=== PATIENT | female | born 1940 | race Caucasian/White ===

== ENCOUNTER 2019-02-21 17:51 | Emergency (ER) | payer MEDICARE ==
[2019-02-21] MEDS ORDERED: Zofran 4 MG/2 ML VIAL ONE (18:37)
[2019-02-21] MEDS ORDERED: Hydromorphone 1 mg/ml Ampule ONE (18:37)
[2019-02-21] MEDS ORDERED: Sodium Chloride 0.9% 1000 ML 1,000 ML ONE (18:38)
[2019-02-21] MEDS: Sodium Chloride 0.9% 1000 ML 1,000 ML IV SCH (18:38)
[2019-02-21] MEDS: Hydromorphone 1 mg/ml Ampule IV ONE (18:39)
[2019-02-21] MEDS: Zofran 4 MG/2 ML VIAL IV ONE (18:39)
--- NOTE | 2019-02-21 19:29 | ERPHSYRPT ---
- History of Present Illness Time Seen by Provider: 02/21/19 18:20 Source: patient, family Exam Limitations: no limitations Patient Subjective Stated Complaint: Pt states "I stumbled in the kitchen and now my left hip is killing me.:" Triage Nursing Assessment: Pt presented alert and oriented X 3, skin pwd Pt has prosthetic on right lower leg. Pt moaning and grabbing at left hip. 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 pt tripped over a vacuum cabin cleaner attachment. fell directly on left hip. denies back, neck or head injury or pain. hurts to bear weight. Timing/Duration: today Occured at: home Context: tripped Quality: sharpness, stabbing, throbbing Hip Pain Location: hip (L) Severity of Pain-Max: moderate Severity of Pain-Current: moderate Modifying Factors: Improves With: movement Symptoms prior to fall: none Associated Symptoms: trouble walking Allergies/Adverse Reactions: No Known Drug Allergies Allergy (Unverified 02/21/19 18:18) Home Medications: No Reportable Medications [No Reported Medications] 02/21/19 [History] Hx Tetanus, Diphtheria Vaccination/Date Given: No Hx Influenza Vaccination/Date Given: Yes Hx Pneumococcal Vaccination/Date Given: No Immunizations Up to Date: Yes - Review of Systems Constitutional: No Symptoms Eyes: No Symptoms Ears, Nose, & Throat: No Symptoms Respiratory: No Symptoms Cardiac: No Symptoms Abdominal/Gastrointestinal: No Symptoms Genitourinary Symptoms: No Symptoms Musculoskeletal: Fall, Injury, Joint Pain (left hip) Skin: No Symptoms Neurological: No Symptoms Psychological: No Symptoms Endocrine: No Symptoms Hematologic/Lymphatic: No Symptoms Immunological/Allergic: No Symptoms All Other Systems: Reviewed and Negative - Past Medical History Pertinent Past Medical History: No Neurological History: No Pertinent History ENT History: No Pertinent History Cardiac History: No Pertinent History Respiratory History: No Pertinent History Endocrine Medical History: No Pertinent History Musculoskeletal History: No Pertinent History GI Medical History: No Pertinent History History: No Pertinent History Psycho-Social History: No Pertinent History Female Reproductive Disorders: No Pertinent History - Past Surgical History Past Surgical History: Yes Neuro Surgical History: No Pertinent History Cardiac: No Pertinent History Respiratory: No Pertinent History Gastrointestinal: No Pertinent History Genitourinary: No Pertinent History Musculoskeletal: Amputation Female Surgical History: No Pertinent History Other Surgical History: right leg amputation. right hip. fx tibia - Social History Smoking Status: Never smoker Exposure to second hand smoke: No Drug Use: none Patient Lives Alone: Yes - Female History Hx Now: No - Nursing Vital Signs Nursing Vital Signs: Initial Vital Signs Temperature 99.1 F 02/21/19 18:12 Pulse Rate 76 02/21/19 18:12 Respiratory Rate 20 02/21/19 18:12 Blood Pressure 192/95 02/21/19 18:12 O2 Sat by Pulse Oximetry 98 02/21/19 18:12 Pain Scale Pain Intensity 3 - Physical Exam General Appearance: moderate distress, alert, anxiety Eye Exam: PERRL/EOMI, eyes nml inspection Ears, Nose, Throat Exam: normal ENT inspection, moist mucous membranes Neck Exam: normal inspection, non-tender, supple, full range of motion Respiratory Exam: normal breath sounds, lungs clear, airway intact, No chest tenderness, No respiratory distress Cardiovascular Exam: regular rate/rhythm, normal heart sounds, normal peripheral pulses Gastrointestinal Exam: soft, normal bowel sounds, No tenderness Pelvic Exam: not done Rectal Exam: not done Back Exam: normal inspection, normal range of motion, No CVA tenderness, No vertebral tenderness Extremity Exam: tenderness (left hip decreased rom left lower ext; right below knee amputation with prosthetic in place) Neurologic Exam: alert, oriented x 3, cooperative, 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, normal mood/affect Skin Exam: normal color, warm, dry Lymphatic Exam: No adenopathy SpO2 Interpretation: normal SpO2: 100 O2 Delivery: Room Air - Course Nursing assessment & vital signs reviewed: Yes EKG Interpreted by Me: RATE (75), Sinus Rhythm, NORMAL AXIS, NORMAL INTERVALS, NORMAL QRS, Non-specific ST Changes, Other (no comparison ekg) Ordered Tests: Active Orders 24 hr Category Date Time Status EKG-ER Only STAT Care 02/21/19 19:57 Active Wiley [Catheter-[place] Wiley] STAT Care 02/21/19 19:57 Active IV Insertion STAT Care 02/21/19 18:33 Active FEMUR Stat Exams 02/21/19 19:32 Taken HIP UNI (2V) INCL PEL IF DONE Stat Exams 02/21/19 18:34 Taken BMP Stat Lab 02/21/19 18:30 Completed CBC W DIFF Stat Lab 02/21/19 18:30 Completed PROTIME WITH INR Stat Lab 02/21/19 18:30 Completed Medication Summary Generic Name Dose Route Start Last Admin Trade Name Edgardo PRN Reason Stop Dose Admin Sodium Chloride 1,000 mls @ 50 mls/hr 02/21/19 18:45 02/21/19 18:38 Sodium Chloride 0.9% 1000 Ml IV 03/23/19 18:44 50 mls/hr .Q20H GABY Administration Discontinued Medications Generic Name Dose Route Start Last Admin Trade Name Edgardo PRN Reason Stop Dose Admin Hydromorphone HCl 1 mg 02/21/19 18:33 02/21/19 18:39 Hydromorphone 1 Mg/Ml Ampule IV 02/21/19 18:34 1 mg STAT ONE Administration Hydromorphone HCl Confirm 02/21/19 18:37 Hydromorphone 1 Mg/Ml Ampule Administered 02/21/19 18:38 Dose 1 mg .ROUTE .STK-MED ONE Ondansetron HCl 4 mg 02/21/19 18:33 02/21/19 18:39 Zofran 4 Mg/2 Ml Vial IV 02/21/19 18:34 4 mg STAT ONE Administration Ondansetron HCl Confirm 02/21/19 18:37 Zofran 4 Mg/2 Ml Vial Administered 02/21/19 18:38 Dose 4 mg .ROUTE .STK-MED ONE Lab/Rad Data: Laboratory Result Diagrams 02/21/19 18:30 02/21/19 18:30 Laboratory Results 02/21/19 02/21/19 02/21/19 Range/Units 18:30 18:30 18:30 WBC 5.1 (4.0-10.5) K/mm3 RBC 4.10 (4.1-5.4) M/mm3 Hgb 12.9 (12.0-16.0) gm/dl Hct 39.1 (35-47) % MCV 95.4 (78-100) fl MCH 31.5 (26-32) pg MCHC 33.0 (32-36) g/dl RDW 12.7 (11.5-14.0) % Plt Count 164 (150-450) K/mm3 MPV 10.9 H (6-9.5) fl Gran % 67.6 H (36.0-66.0) % Eos # (Auto) 0.10 (0-0.5) Absolute Lymphs (auto) 1.19 (1.0-4.6) Absolute Monos (auto) 0.34 (0.0-1.3) Lymphocytes % 23.3 L (24.0-44.0) % Monocytes % 6.7 (0.0-12.0) % Eosinophils % 2.0 (0.00-5.0) % Basophils % 0.4 (0.0-0.4) % Absolute Granulocytes 3.45 (1.4-6.9) Basophils # 0.02 (0-0.4) PT 11.5 (9.95-12.35) SECONDS INR 1.02 (0.8-3.0) Sodium 141 (137-145) mmol/L Potassium 4.2 (3.5-5.1) mmol/L Chloride 105 (98-107) mmol/L Carbon Dioxide 28 (22-30) mmol/L Anion Gap 12.6 (5-15) MEQ/L BUN 22 H (7-17) mg/dL Creatinine 0.70 (0.52-1.04) mg/dL Estimated GFR > 60.0 ML/MIN Glucose 93 (74-106) mg/dL Calcium 9.6 (8.4-10.2) mg/dL - Progress Progress: improved, pain not gone completely, re-examined Progress Note: 02/21/19 20:42 pt states pain 2-3/10 when not moving. does not want any more pain medication. xray left hip/femor-impacted left subcapital fx. spoke with [facility] ED dr. Heart. he accepts pt for transfer. pts orthopedic surgeon, dr. jeff, operates there. Discussed with Dr.: Other (dr. heart [facility]) Counseled pt/family regarding: lab results, diagnosis, rad results - Departure Departure Disposition: Transfer Clinical Impression: Subcapital fracture of left femur Condition: Stable Critical Care Time: No Referrals: DOCTOR,NO FAMILY [Primary Care Provider] -
[2019-02-21 20:10] LABS: BASOPHIL % 0.4 % (0.0-0.4); Basophil (Absolute #) 0.02 (0-0.4); Granulocyte Absolute (ANC) 3.45 (1.4-6.9); Granulocytes % 67.6 % (36.0-66.0); Hematocrit 39.1 % (35-47); Hemoglobin 12.9 gm/dl (12.0-16.0); INR 1.02 (0.8-3.0); Lymphocyte (Absolute #) 1.19 (1.0-4.6); Lymphocytes % 23.3 % (24.0-44.0); Mean Cell Volume 95.4 fl (78-100); Mean Corpuscular Hemoglobin 31.5 pg (26-32); Mean Platelet Volume 10.9 fl (6-9.5); Monocyte (Absolute #) 0.34 (0.0-1.3); Monocytes % 6.7 % (0.0-12.0); PROTIME 11.5 SECONDS (9.95-12.35); Platelet Count 164 K/mm3 (150-450); Red Cell Distribution Width 12.7 % (11.5-14.0); White Blood Count 5.1 K/mm3 (4.0-10.5)
[2019-02-21 20:14] LABS: ANION GAP 12.6 MEQ/L (5-15); BLOOD UREA NITROGEN 22 mg/dL (7-17); CHLORIDE 105 mmol/L (98-107); Calcium 9.6 mg/dL (8.4-10.2); Carbon Dioxide 28 mmol/L (22-30); Glucose 93 mg/dL (74-106); Potassium 4.2 mmol/L (3.5-5.1); SODIUM 141 mmol/L (137-145)
[2019-02-21 20:46] VITALS: O2SAT 100
[2019-02-21] MEDS ORDERED: Ativan 2 MG/1 ML VIAL ONE (20:50)
[2019-02-21] MEDS: Ativan 2 MG/1 ML VIAL IV ONE (20:53)
[2019-02-21 21:30] VITALS: BP 157/83; PULSE 83
[2019-02-21 22:04] LABS: Appearance CLEAR (CLEAR); Bilirubin NEGATIVE (NEGATIVE); Blood NEGATIVE Ery/ul (0-5); Glucose NEGATIVE (NEGATIVE); Ketones SMALL (NEGATIVE); Leukocyte Esterase NEGATIVE (NEGATIVE); Nitrite POSITIVE (NEGATIVE); Protein,Urine Dip NEGATIVE (Negative); Urobilinogen NEGATIVE mg/dL (0-1)
--- NOTE | 2019-02-22 08:36 | XRAY ---
Indication: Left hip pain following fall. Comparison: None 2 views of the left femur demonstrates mildly impacted subcapital fracture. Elsewhere osteopenia, tiny patella spurring, old proximal tibial plateau fracture with orthopedic hardware, and scattered vascular calcifications. No other bony, articular, or soft tissue abnormalities.
--- NOTE | 2019-02-22 08:39 | XRAY ---
Indication: Left hip pain following fall. Comparison: None AP pelvis and 2 views of the left hip demonstrates mildly impacted left subcapital femur fracture. Elsewhere osteopenia, old proximal right femur fracture with 3 orthopedic screws, and scattered vascular calcifications. No other bony, articular, or soft tissue abnormalities.
== END 2019-02-21 21:40 | disposition short-term general hospital (02) ==
LOC: ED 17:51
DX: S72.012A Unspecified intracapsular fracture of left femur, initial encounter for closed fracture (principal); M25.552 Pain in left hip; Z89.511 Acquired absence of right leg below knee; W01.0XXA Fall on same level from slipping, tripping and stumbling without subsequent striking against object, initial encounter
CPT/HCPCS: 36000; 36415; 51702; 73502; 73552; 80048; 81001; 85025; 85610; 87077; 87086; 87186; 93005; 96374; 96375; 99285; J1170; J2060; J2405

== ENCOUNTER 2019-04-22 11:20 | Emergency (ER) | payer MEDICARE ==
--- NOTE | 2019-04-22 11:24 | ERPHSYRPT ---
- History of Present Illness Time Seen by Provider: 04/22/19 11:24 Source: patient Exam Limitations: no limitations Physician History: 78 y/o white female presents with subcapital fx left femur. today she bent over and when stood up she had severe lumbar pain. pt took alleve with only mild improvement. pt states she has oxycodone but could not open med bottle. pt drove here on her own. Timing/Duration: today Method of Injury: bending Quality: aching, stabbing Back Pain Location: lumbar spine Severity of Pain-Max: moderate Severity of Pain-Current: mild Modifying Factors: Improves With: movement Associated Symptoms: denies symptoms, lower back pain, muscle spasms Previous symptoms: no prior history Allergies/Adverse Reactions: No Known Drug Allergies Allergy (Verified 04/22/19 11:41) Home Medications: No Reportable Medications [No Reported Medications] 02/21/19 [History] Hx Tetanus, Diphtheria Vaccination/Date Given: No Hx Influenza Vaccination/Date Given: Yes Hx Pneumococcal Vaccination/Date Given: No - Review of Systems Constitutional: No Symptoms Eyes: No Symptoms Ears, Nose, & Throat: No Symptoms Respiratory: No Symptoms Cardiac: No Symptoms Abdominal/Gastrointestinal: No Symptoms Genitourinary Symptoms: No Symptoms Musculoskeletal: Back Pain, Injury (lower ) Skin: No Symptoms Neurological: No Symptoms Psychological: No Symptoms Endocrine: No Symptoms Hematologic/Lymphatic: No Symptoms Immunological/Allergic: No Symptoms All Other Systems: Reviewed and Negative - Past Medical History Pertinent Past Medical History: No Neurological History: No Pertinent History ENT History: No Pertinent History Cardiac History: No Pertinent History Respiratory History: No Pertinent History Endocrine Medical History: No Pertinent History Musculoskeletal History: No Pertinent History GI Medical History: No Pertinent History History: No Pertinent History Psycho-Social History: No Pertinent History Female Reproductive Disorders: No Pertinent History - Past Surgical History Past Surgical History: Yes Neuro Surgical History: No Pertinent History Cardiac: No Pertinent History Respiratory: No Pertinent History Gastrointestinal: No Pertinent History Genitourinary: No Pertinent History Musculoskeletal: Amputation Female Surgical History: No Pertinent History Other Surgical History: right leg amputation. right hip. fx tibia - Social History Smoking Status: Never smoker Exposure to second hand smoke: No Drug Use: none Patient Lives Alone: Yes - Nursing Vital Signs Nursing Vital Signs: Initial Vital Signs Temperature 98.7 F 04/22/19 11:37 Pulse Rate 62 04/22/19 11:37 Respiratory Rate 14 04/22/19 11:37 Blood Pressure 178/81 04/22/19 11:37 O2 Sat by Pulse Oximetry 97 04/22/19 11:37 Pain Scale Pain Intensity [Lower Back] 5 Pain Intensity 5 - Physical Exam General Appearance: no apparent distress, alert, anxiety Eye Exam: PERRL/EOMI, eyes nml inspection Ears, Nose, Throat Exam: normal ENT inspection, moist mucous membranes Neck Exam: normal inspection, non-tender, supple, full range of motion Respiratory Exam: No chest tenderness Gastrointestinal Exam: No tenderness Pelvic Exam: not done Rectal Exam: not done Back Exam: normal inspection, normal range of motion, muscle spasm, No CVA tenderness, No vertebral tenderness Extremity Exam: normal inspection, normal range of motion, pelvis stable Neurologic Exam: alert, oriented x 3, 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, 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 Skin Exam: normal color, warm, dry Lymphatic Exam: No adenopathy SpO2 Interpretation: normal O2 Delivery: Room Air - Course Nursing assessment & vital signs reviewed: Yes Ordered Tests: Active Orders 24 hr Category Date Time Status LUMBAR LIMITED (2 OR 3 VIEWS) Stat Exams 04/22/19 11:48 Completed - Progress Progress: unchanged Progress Note: 04/22/19 12:55 lumbar xrays-no acute fx or subluxation Counseled pt/family regarding: diagnosis, need for follow-up, rad results - Departure Departure Disposition: Home Clinical Impression: Low back pain Condition: Stable Critical Care Time: No Referrals: JOSÉ LUIS SHANNON NP [Primary Care Provider] - Additional Instructions: take your prescribed pain medication you have at home. follow up with primary doctor for further management
--- NOTE | 2019-04-22 12:40 | XRAY ---
Indication: Pain. Comparison: None 3 views of the lumbar spine demonstrates 5 lumbar segments in normal alignment with osteopenia, mild/moderate multilevel degenerative spondylosis, partially visualized left hip arthroplasty, and partially visualized old right proximal femur fracture. No other bony, articular, or soft tissue abnormalities.
[2019-04-22 13:01] VITALS: BP 166/72; PULSE 60; O2SAT 98
== END 2019-04-22 13:16 | disposition home or self-care (01) ==
LOC: ED 11:20
DX: M54.5 Low back pain (principal); X50.0XXA Overexertion from strenuous movement or load, initial encounter; Y93.9 Activity, unspecified; S72.012D Unspecified intracapsular fracture of left femur, subsequent encounter for closed fracture with routine healing; M62.838 Other muscle spasm
CPT/HCPCS: 72100; 99283

== ENCOUNTER 2025-01-15 09:16 | Emergency (ER) | payer MEDICARE ==
--- NOTE | 2025-01-15 10:15 | ERPHSYRPT ---
- History of Present Illness Time Seen by Provider: 01/15/25 09:35 Source: patient Exam Limitations: no limitations Patient Subjective Stated Complaint: patient stated that she has had back pain for about a month along with tightness to chest, patient stated that she has had 2 falls within the month, patient also stated she had a fall a year ago that lead to compression fractures in lower back Triage Nursing Assessment: patient presents to ed with complaints of back pain/chest tightness, patient's vitals wnl, skin n/w/d, patient rates pain 0/10 Physician History: 83-year-old healthy female not taking any prescription medications with history of chronic back pain presented to the ER with complaints of low back 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 Starts in the low back, wraps around her upper abdomen/lower chest with tightness of chest bilaterally leading to shortness of breath to the point that she has to rest to catch her breath and get short of the pain. This has been going on for quite some time and lately getting worse. She denies any palpitations, cough or difficulty breathing at resting. Patient reports earlier she was making her bed and her symptoms started. Denies any radiation of pain to the lower extremities, no loss of bowel or bladder control/saddle anesthesia. Does report fall with back pain almost 2 years ago and she does have couple of new falls in the month time. No head injury or Allergies/Adverse Reactions: No Known Drug Allergies Allergy (Verified 01/15/25 09:45) Home Medications: No Reportable Medications [No Reported Medications] 02/21/19 [History] Hx Tetanus, Diphtheria Vaccination/Date Given: Yes Hx Influenza Vaccination/Date Given: Yes Hx Pneumococcal Vaccination/Date Given: Yes Travel Risk - International Travel Have you traveled outside of the country in past 3 weeks: No - Emerging Infectious Disease Are you exhibiting symptoms associated with any current EIDs: No - Review of Systems Constitutional: No Symptoms Ears, Nose, & Throat: No Symptoms Respiratory: No Symptoms Cardiac: Chest Pain Abdominal/Gastrointestinal: No Symptoms Genitourinary Symptoms: No Symptoms Musculoskeletal: Back Pain, Fall, Injury Skin: No Symptoms Neurological: No Symptoms Endocrine: No Symptoms Hematologic/Lymphatic: No Symptoms - Past Medical History Pertinent Past Medical History: No Neurological History: No Pertinent History ENT History: No Pertinent History Cardiac History: No Pertinent History Respiratory History: No Pertinent History Endocrine Medical History: No Pertinent History Musculoskeletal History: No Pertinent History GI Medical History: No Pertinent History History: No Pertinent History Psycho-Social History: No Pertinent History Female Reproductive Disorders: No Pertinent History - Past Surgical History Past Surgical History: Yes Neuro Surgical History: No Pertinent History Cardiac: No Pertinent History Respiratory: No Pertinent History Gastrointestinal: No Pertinent History Genitourinary: No Pertinent History Musculoskeletal: Amputation Female Surgical History: No Pertinent History Other Surgical History: right leg amputation. right hip/left hip. fx tibia/left - Social History Smoking Status: Never smoker Exposure to second hand smoke: No Drug Use: none - Social Determinants of Health Will the patient participate in the screening: Yes Do you worry about a steady place to live?: No Do you have any problems with any of the following?: No known problems In the past 12 months,have you had to go without utilities?: No Transportation Issues: No Has anyone in your support network made you feel unsafe?: No Have you or anyone in your house had to go w/o enough food: No - Nursing Vital Signs Nursing Vital Signs: Initial Vital Signs Temperature 97.2 F 01/15/25 09:16 Pulse Rate 60 01/15/25 09:16 Respiratory Rate 16 01/15/25 09:16 Blood Pressure 163/74 01/15/25 09:16 O2 Sat by Pulse Oximetry 100 01/15/25 09:16 Pain Scale Pain Intensity [Back] 0 Pain Intensity 0 - Physical Exam General Appearance: no apparent distress, anxiety Eye Exam: PERRL/EOMI Ears, Nose, Throat Exam: normal ENT inspection Neck Exam: normal inspection, full range of motion Respiratory Exam: normal breath sounds, lungs clear Cardiovascular Exam: regular rate/rhythm, normal heart sounds Gastrointestinal Exam: soft, normal bowel sounds, No tenderness Back Exam: normal inspection, vertebral tenderness (Upper lumbar spinal and paraspinal area), decreased range of motion, muscle spasm Extremity Exam: normal inspection, normal range of motion Neurologic Exam: alert, oriented x 3, cooperative Skin Exam: normal color SpO2 Interpretation: normal SpO2: 100 O2 Delivery: Room Air - Course EKG Interpreted by Me: RATE (62), Sinus Rhythm, NORMAL AXIS, NORMAL INTERVALS, NORMAL QRS Ordered Tests: Active Orders 24 hr Category Date Time Status Head Holder STAT Care 01/15/25 10:06 Active EKG-ER Only STAT Care 01/15/25 10:05 Active IV Insertion STAT Care 01/15/25 10:05 Active CHEST 1 VIEW (PORTABLE) Stat Exams 01/15/25 10:05 Completed THORACOLUMBAR SPINE Stat Exams 01/15/25 10:06 Completed CBC W DIFF Stat Lab 01/15/25 10:15 Completed CMP Stat Lab 01/15/25 10:15 Completed NT PRO BNPII Stat Lab 01/15/25 10:15 Completed TROPONIN Q4H Lab 01/15/25 10:15 Completed TROPONIN Q4H Lab 01/15/25 14:15 Ordered TROPONIN Q4H Lab 01/15/25 18:15 Ordered Medication Summary Discontinued Medications Generic Name Dose Route Start Last Admin Trade Name Freq PRN Reason Stop Dose Admin Aspirin 324 mg 01/15/25 10:05 01/15/25 10:24 Aspirin 81 Mg Tab.Chew PO 01/15/25 10:06 324 mg STAT ONE Administration Aspirin Confirm 01/15/25 10:24 Aspirin 81 Mg Tab.Chew Administered 01/15/25 10:25 Dose 324 mg .ROUTE .STK-MED ONE Fentanyl Citrate 50 mcg 01/15/25 10:05 01/15/25 10:25 Fentanyl Citrate 100 Mcg/2 Ml* Vial IV 01/15/25 10:06 Not Given STAT ONE Ondansetron HCl 4 mg 01/15/25 10:05 01/15/25 10:25 Ondansetron Hcl 4 Mg/2 Ml Vial IV 01/15/25 10:06 Not Given STAT ONE Lab/Rad Data: Laboratory Result Diagrams 01/15/25 10:15 01/15/25 10:15 Laboratory Results 01/15/25 01/15/25 01/15/25 Range/Units 10:15 10:15 10:15 WBC 3.6 L (3.98-10.04) x10^3/uL RBC 4.21 (3.93-5.22) x10^6/uL Hgb 12.9 (11.2-15.7) g/dL Hct 39.1 (34.1-44.9) % MCV 92.9 (79.4-94.8) fL MCH 30.6 (25.6-32.2) pg MCHC 33.0 (32.2-35.5) g/dL RDW 12.5 (11.7-14.4) % Plt Count 113 L (182-369) x10^3/uL MPV 9.6 (9.4-12.3) fL Gran % 63.5 (34.0-71.1) % Immature Gran % (Auto) 0.3 (0.001-0.429) % Nucleat RBC Rel Count 0.0 (0.00-0.2) % Eos # (Auto) 0.12 (0.04-0.36) x10^3/uL Immature Gran # (Auto) 0.01 (0.001-0.031) x10^3u/L Absolute Lymphs (auto) 0.85 L (1.18-3.74) x10^3/uL Absolute Monos (auto) 0.29 (0.24-0.86) x10^3/uL Absolute Nucleated RBC 0.00 (0.00-0.012) x10^3u/L Lymphocytes % 23.7 (19.3-51.7) % Monocytes % 8.1 (4.7-12.5) % Eosinophils % 3.3 (0.7-5.8) % Basophils % 1.1 (0.1-1.2) % Absolute Granulocytes 2.28 (1.56-6.13) x10^3/uL Basophils # 0.04 (0.01-0.08) x10^3/uL Sodium 139 (135-145) mmol/L Potassium 4.8 (3.5-5.1) mmol/L Chloride 106 (98-107) mmol/L Carbon Dioxide 29 (22-30) mmol/L Anion Gap 9.1 (5-15) MEQ/L BUN 21 H (7-17) mg/dL Creatinine 0.73 (0.52-1.04) mg/dL Estimated GFR 80.5 ML/MIN Glucose 93 (74-106) mg/dL Calcium 9.3 (8.4-10.2) mg/dL Total Bilirubin 0.50 (0.2-1.3) mg/dL AST 32 (14-36) U/L ALT 18 (0-35) U/L Alkaline Phosphatase 69 (38-126) U/L Troponin I < 0.012 (0.000-0.033) ng/mL NT-Pro-B Natriuret Pep 411 (<300) pg/mL Serum Total Protein 6.2 L (6.3-8.2) g/dL Albumin 4.1 (3.5-5.0) g/dL - Progress Progress: pain not gone completely, re-examined Progress Note: 01/15/25 12:27 Differential diagnosis: Spinal fracture/subluxation, back strain, nerve impingement, acute coronary syndrome/angina, pneumonia 84-year-old fairly healthy female is evaluated in the ER for low back pain off and on with some chest pain and dyspnea especially with any kind of exertional work. She is offered pain medication which she declined. EKG is sinus rhythm with no acute ischemic changes. White count of 3, chemistries fairly unremarkable. Negative initial troponin. Chest x-ray is negative for any acute cardiopulmonary findings interpreted by me followed by official read. X-rays of the lumbar and thoracic spine finding consistent with arthritic changes and old fractures but no new acute findings interpreted by me followed by official read. Patient does not have any cardiac workup done in the recent past. Her pain reproducibility with exertion seems to be concerning, I recommended trending of cardiac enzymes and observation admission but patient does not want to stay in the hospital at all. Patient reports "I do not think it is my heart and will come back if it gets worse". Discussed with patient about the risk of leaving AGAINST MEDICAL ADVICE without full workup would not only delay the diagnosis for worsening of condition which could be life-threatening but she is still adamant about leaving. She is not willing to stay for second troponin. She would follow-up with her primary care. She is not confused or altered at all. Patient signed AMA paperwork and walked out of the ER in stable condition without any assistance. Complexity of problems addressed: Moderate acute Complexity of data reviewed/analyzed: Extensive Risk of complication: Moderate Counseled pt/family regarding: lab results, diagnosis, need for follow-up, rad results Medical Desision Making - Diagnostic Testing Diagnostic test were ordered, analyzed, and reviewed by me: Yes Radiological Interpretation: Interpreted by me, Reviewed by me - Risk of complications The pt has a mod risk of morbidity or mortality based on: Need for prescription drug management - Departure Departure Disposition: AMA Clinical Impression: Dyspnea on exertion, Acute on chronic low back pain Condition: Stable Critical Care Time: No Referrals: ABBIE MCKNIGHT MD [Primary Care Provider, FAMILY PRACTICE] - Follow up with PCP 1 day CHRISTINA TORRES [CONSULTING PHYSICIAN, CARDIOLOGY] - Follow up/PCP as directed Referral Note: Call for fOR re evaluation Instructions: Low Back Pain (DC) Additional Instructions: Take Tylenol as needed. Avoid exertional activities. Follow-up with primary care/cardiology for reevaluation. Return to the ER for worsening of low back pain or if having worsening of chest pain difficulty breathing etc.
[2025-01-15 10:22] LABS: BASOPHIL % 1.1 % (0.1-1.2); Basophil (Absolute #) 0.04 x10^3/uL (0.01-0.08); Eosinophil (Absolute #) 0.12 x10^3/uL (0.04-0.36); Hematocrit 39.1 % (34.1-44.9); Hemoglobin 12.9 g/dL (11.2-15.7); IMMATURE GRAN # 0.01 x10^3u/L (0.001-0.031); IMMATURE GRAN % 0.3 % (0.001-0.429); Lymphocyte (Absolute #) 0.85 x10^3/uL (1.18-3.74); Mean Corpuscular Hemoglobin 30.6 pg (25.6-32.2); Mean Corpuscular Hgb Concent. 33.0 g/dL (32.2-35.5); Monocyte (Absolute #) 0.29 x10^3/uL (0.24-0.86); NUCLEATED RBC # 0.00 x10^3u/L (0.00-0.012); NUCLEATED RBC % 0.0 % (0.00-0.2); Platelet Count 113 x10^3/uL (182-369); Red Blood Count 4.21 x10^6/uL (3.93-5.22); White Blood Count 3.6 x10^3/uL (3.98-10.04)
[2025-01-15] MEDS: BABY ASPIRIN 81 MG CHEW PO ONE (10:24)
[2025-01-15] MEDS ORDERED: BABY ASPIRIN 81 MG CHEW ONE (10:24)
[2025-01-15] MEDS: Zofran 4 MG/2 ML VIAL IV ONE (10:25)
[2025-01-15] MEDS: SUBLIMAZE 100 MCG/2 ML IV ONE (10:25)
[2025-01-15 10:44] LABS: Calcium 9.3 mg/dL (8.4-10.2); Carbon Dioxide 29.0 mmol/L (22-30); Creatinine 1 0.73 mg/dL (0.52-1.04); EST GLOMERULAR FILTRATION RATE 80.5 ML/MIN; Glucose 93.0 mg/dL (74-106); NT PRO BNPII 411.0 pg/mL (<300); Potassium 4.8 mmol/L (3.5-5.1); SGOT/AST 32.0 U/L (14-36); SGPT/ALT 18.0 U/L (0-35); Total Protein 6.2 g/dL (6.3-8.2)
--- NOTE | 2025-01-15 11:04 | XRAY ---
Indication: Chest tightness. Comparison: None Portable chest clear with COPD and minimal biapical calcified pleural plaquing. Heart not enlarged. Bony thorax intact with osteopenia and mild degenerative changes. No acute findings.
--- NOTE | 2025-01-15 11:05 | XRAY ---
Indication: Chronic pain. Comparison: None AP/lateral radiograph centered thoracolumbar junction demonstrates osteopenia, minimal dextroscoliosis centered at thoracolumbar junction, and minimal/mild multilevel thoracolumbar degenerative spondylosis. Remote T11/L1 superior endplate fractures unchanged with respect to MRI January 22, 2024. No acute abnormalities.
[2025-01-15 12:36] VITALS: BP 140/76; PULSE 58; RESP 16; TEMP 97; O2SAT 99
== END 2025-01-15 12:41 | disposition left against medical advice (07) ==
LOC: ED 09:16
DX: R06.09 Other forms of dyspnea (principal); G89.29 Other chronic pain; M54.50 Low back pain, unspecified; R07.9 Chest pain, unspecified